=== PATIENT | female | born 1960 | race Caucasian/White ===

== ENCOUNTER → 2017-02-20 16:53 | Outpatient (CLI) | payer OTHER | END | disposition home or self-care (01) | LOC: D.MAMMO 09:00 | DX: Z12.31 Encounter for screening mammogram for malignant neoplasm of breast (principal) ==

== ENCOUNTER → 2017-03-21 14:27 | Outpatient (CLI) | payer OTHER | END | disposition home or self-care (01) | LOC: D.MAMMO 10:30 | DX: R92.8 Other abnormal and inconclusive findings on diagnostic imaging of breast (principal) ==

== ENCOUNTER → 2018-02-07 08:00 | Outpatient (CLI) | payer OTHER ==
[~2018-02-07 08:00] MED LIST: ALDACTONE25 MG PO; CLEOCIN HCL300 MG PO; COLACE100 MG PO; ELIQUIS2.5 MG PO; NEURONTIN 300300 MG PO; PEPCID AC20 MG PO; PRINZIDE 20/12.1 TA1 PO; ZOLOFT100 MG PO
== END | disposition home or self-care (01) ==
LOC: D.MAMMO 08:00
DX: R92.8 Other abnormal and inconclusive findings on diagnostic imaging of breast (principal)

== ENCOUNTER 2018-03-14 23:00 | Emergency (ER) | payer OTHER ==
[~2018-03-14] VITALS: Ht 154.9 cm; Wt 81.8 kg
[2018-03-14 23:06] VITALS: Ht 154.9 cm; Wt 81.8 kg
[2018-03-14] MEDS ORDERED: PRINZIDE 20/12.1 TA1 PO (23:08)
[2018-03-14] MEDS ORDERED: ZOLOFT100 MG PO (23:09)
[2018-03-14] MEDS ORDERED: ELIQUIS2.5 MG PO (23:09)
[2018-03-14] MEDS ORDERED: COLACE100 MG PO (23:09)
[2018-03-14] MEDS ORDERED: PEPCID AC20 MG PO (23:10)
[2018-03-14] MEDS ORDERED: CLEOCIN HCL300 MG PO (23:10)
[2018-03-14] MEDS ORDERED: NEURONTIN 300300 MG PO (23:10)
[2018-03-14] MEDS ORDERED: ALDACTONE25 MG PO (23:11)
[2018-03-14 23:48] VITALS: BP 150/78
== END 2018-03-14 23:49 | disposition home or self-care (01) ==
LOC: D.ER 23:00
DX: T81.31XA Disruption of external operation (surgical) wound, not elsewhere classified, initial encounter (principal); I10 Essential (primary) hypertension; K21.9 Gastro-esophageal reflux disease without esophagitis; F17.200 Nicotine dependence, unspecified, uncomplicated

== ENCOUNTER 2020-08-17 10:15 | Outpatient (CLI) | payer OTHER ==
[2018-03-14 23:06] VITALS: BMI 34.0
== END 2020-08-17 10:45 | disposition home or self-care (01) ==
LOC: D.MAMMO 10:15
PROVIDERS: ATTEND Family Medicine
DX: Z12.31 Encounter for screening mammogram for malignant neoplasm of breast (principal)